=== PATIENT | male | born 1945 | race Caucasian/White ===

== ENCOUNTER 2016-10-15 12:59 | Day surgery (SDC) | payer MEDICARE, BC | END 2016-10-15 13:32 | disposition home or self-care (01) | LOC: HOP 12:59 | PROVIDERS: ATTEND Internal Medicine Gastroenterology | DX: Z86.010 Personal history of colon polyps (principal); Z53.9 Procedure and treatment not carried out, unspecified reason ==

== ENCOUNTER 2016-11-05 12:38 | Day surgery (SDC) | payer MEDICARE, BC ==
[2016-11-05] MEDS ORDERED: LIDOCAINE 2% MDV (20MG/ML) 20ML VIAL IV ONE (14:00)
[2016-11-05] MEDS ORDERED: PROPOFOL 10 MG/ML VIAL IV ONE (14:00)
--- NOTE | 2016-11-07 12:10 | Operative Note ---
DATE OF SURGERY: 11/05/2016 OPERATION: Incomplete COLONOSCOPY. INDICATION: History of colon polyps in the past. The patient returns at this time for surveillance. ANESTHESIA: Intravenous sedation was administered by the department of anesthesiology and included Diprivan titrated to effect. PROCEDURE: Following informed consent from this alert individual including a discussion of the risks and benefits of the procedure and an opportunity for the patient to ask questions, the patient was in the left lateral decubitus position. A digital rectal examination was performed. No abnormalities were noted. Following this, the Olympus [id number] video colonoscope was inserted into the rectum without resistance. The rectal mucosa had a normal appearance with normal folds and distensibility. There was some retained stool noted. The colonoscope was advanced up through the left colon into the transverse colon but unfortunately there was a marked amount of retained liquid and semi-solid and solid stool noted. This precluded adequate visualization of the mucosa. From this point, the colonoscope was withdrawn. Again, there was a copious amount of liquid, semi-solid, and some solid stool noted precluding a good evaluation of the mucosa throughout. The colonoscope was removed. The patient tolerated the procedure well and was returned to the recovery area in stable condition. IMPRESSION: 1. Incomplete colonoscopy due to poor colon preparation. 2. Solitary diverticulum noted. RECOMMENDATIONS: I will discuss the issue of adequate preparation with the patient and will most likely reschedule examination. Apparently, he claims this was a 3-day colon prep. Followup will also be with Dr. Segundo. As always, thank you for allowing me to participate in the care of your patient. Jesse Savage, CC: FEDERICO SEGUNDO MD, [facility]
== END 2016-11-05 14:15 | disposition home or self-care (01) ==
LOC: HOP 12:38
PROVIDERS: ATTEND Internal Medicine Gastroenterology
DX: Z12.11 Encounter for screening for malignant neoplasm of colon (principal); I10 Essential (primary) hypertension; M79.7 Fibromyalgia
CPT/HCPCS: 00810; G0121

== ENCOUNTER 2016-12-15 08:46 | Emergency (ER) | payer MEDICARE, BC ==
--- NOTE | 2016-12-15 09:01 | Emergency Department Record ---
History of Present Illness - General Chief complaint: ENT Stated complaint: SINUS SAHU,10 DAYS Time Seen by Provider: 12/15/16 08:54 Source: Patient - History of Present Illness Initial comments: The patient states that he has had face pressure from his sinuses for the past 10 days, especially over his upper teeth and cheeks. He denies f,c,stiff neck, rashes, cp, sam, ap. He feels like he has post nasal dripping down his throat but is unsure of the color of drainage. He has had sinus infections in the past but not recently. He sees Dr. Segundo for his PCP. - Related Data Home Medications Medication Instructions Recorded Confirmed Last Taken Atenolol 50 mg PO DAILY 12/15/16 12/15/16 12/14/16 Duloxetine HCl [Cymbalta] 60 mg PO BID 12/15/16 12/15/16 12/14/16 Fentanyl [Duragesic] 75 mcg TD Q72H 12/15/16 12/15/16 12/13/16 Pregabalin [Lyrica] 150 mg PO BID 12/15/16 12/15/16 12/14/16 Tramadol HCl [Ultram] 50 mg PO BID PRN 12/15/16 12/15/16 12/15/16 Trazodone HCl 50 mg PO QHS 12/15/16 12/15/16 12/14/16 Previous Rx's Medication Instructions Recorded Azithromycin [Zithromax] 500 mg PO DAILY #7 tab 12/15/16 Allergies Allergy/AdvReac Type Severity Reaction Status Date / Time No Known Drug Allergies Allergy Verified 12/15/16 08:57 Review of Systems Reviewed: No additional complaints except as noted below Constitutional: Reports: As per HPI. Denies: Chills, Fever, Malaise, Night sweats, Weakness, Weight change Eyes: Reports: As per HPI. Denies: Eye discharge, Eye pain, Photophobia, Vision change ENT: Reports: As per HPI. Denies: Congestion, Dental pain, Ear pain, Epistaxis , Hearing loss, Throat pain Respiratory: Reports: As per HPI. Denies: Cough, Dyspnea, Hemoptysis, Stridor, Wheezes Cardiovascular: Reports: As per HPI. Denies: Arrhythmia, Chest pain, Dyspnea on exertion, Edema, Murmurs, Orthopnea, Palpitations, Paroxysmal nocturnal dyspnea, Rheumatic Fever, Syncope Endocrine: Reports: As per HPI. Denies: Fatigue, Heat or cold intolerance, Polydipsia, Polyuria Gastrointestinal: Reports: As per HPI. Denies: Abdominal pain, Constipation, Diarrhea, Hematemesis, Hematochezia, Melena, Nausea, Vomiting Genitourinary: Reports: As per HPI. Denies: Dysuria, Frequency, Hematuria, Incontinence, Retention, Testicular pain, Testicular mass, Urgency Musculoskeletal: Reports: As per HPI. Denies: Arthralgia, Back pain, Gout, Joint swelling, Myalgia, Neck pain Skin: Reports: As per HPI. Denies: Bruising, Change in color, Change in hair/ nails, Lesions, Pruritus, Rash Neurological: Reports: As per HPI. Denies: Abnormal gait, Confusion, Headache, Numbness, Paresthesias, Seizure, Tingling, Tremors, Vertigo, Weakness Psychiatric: Reports: As per HPI. Denies: Anxiety, Auditory hallucinations, Depression, Homicidal thoughts, Suicidal thoughts, Visual hallucinations Hematological/Lymphatic: Reports: As per HPI. Denies: Anemia, Blood Clots, Easy bleeding, Easy bruising, Swollen glands Past Medical History - SOCIAL HISTORY Smoking Status: Never smoker - RESPIRATORY Hx Respiratory Disorders: Yes Hx Sleep Apnea: Yes Hx of CPAP: Yes - CARDIOVASCULAR Hx Cardio Disorders: Yes Hx Hypertension: Yes - NEURO Hx Neuro Disorders: Yes Hx Headaches: Yes - GI Hx GI Disorders: Yes Hx Diverticulitis: Yes Hx of Polyps: Yes Comment:: CONSTIPATION - Hx Genitourinary Disorders: Yes Hx Prostate Problems: Yes - ENDOCRINE Hx Endocrine Disorders: No - MUSCULOSKELETAL Hx Musculoskeletal Disorders: Yes Hx Arthritis: Yes Hx Fibromyalgia: Yes Hx Osteoporosis: Yes - PSYCH Hx Psych Problems: Yes Hx Anxiety: Yes Hx Depression: Yes - HEMATOLOGY/ONCOLOGY Hx Hematology/Oncology Disorders: No Physical Exam - General General Appearance: Alert, Oriented x3, Cooperative, No acute distress - Head Head exam: Normal inspection Image of Face/Head: 1 - facial pressure - Eye Eye exam: Normal appearance, PERRL Pupils: Normal accommodation - ENT ENT exam: Normal exam, Mucous membranes moist, Normal external ear exam, Normal orophraynx, TM's normal bilaterally Ear exam: Normal external inspection. negative: External canal tenderness Nasal Exam: Normal inspection. negative: Discharge, Sinus tenderness Mouth exam: Normal external inspection, Tongue normal Teeth exam: Normal inspection. negative: Dental caries Throat exam: Normal inspection. negative: Tonsillar erythema, Tonsillar exudate - Neck Neck exam: Normal inspection, Full ROM. negative: Tenderness - Respiratory Respiratory exam: Normal lung sounds bilaterally. negative: Respiratory distress - Cardiovascular Cardiovascular Exam: Regular rate, Normal rhythm, Normal heart sounds - GI/Abdominal GI/Abdominal exam: Soft, Normal bowel sounds. negative: Tenderness - Rectal Rectal exam: Deferred - exam: Deferred - Extremities Extremities exam: Normal inspection, Full ROM, Normal capillary refill. negative: Tenderness - Back Back exam: Reports: Normal inspection, Full ROM. Denies: CVA tenderness (R), CVA tenderness (L), Muscle spasm, Rash noted, Tenderness - Neurological Neurological exam: Alert, CN II-XII intact, Normal gait, Oriented X3, Reflexes normal. negative: Motor sensory deficit - Psychiatric Psychiatric exam: Normal affect, Normal mood - Skin Skin exam: Dry, Intact, Normal color, Warm Medical Decision Making - Management Options MDM Management: No Additional Work-up Planned Disposition Disposition: Discharge Clinical Impression: Sinusitis Qualifiers: Sinusitis location: maxillary Chronicity: acute Recurrence: not specified as recurrent Qualified Code(s): J01.00 - Acute maxillary sinusitis, unspecified Disposition: Home, Self-Care Condition: (1) Good Instructions: Sinusitis (ED) Additional Instructions: Take antibiotics until gone. Tylenol as directed as needed for pain, fevers. Follow up with PCP as needed. Prescriptions: Azithromycin [Zithromax] 500 mg PO DAILY #7 tab Quality - Quality Measures Quality Measures: Adult Sinusitis - Adult Sinusitis: CT Use Quality Measure: Measure #333: Adult Sinusitis Adult Sinusitis: CT for Acute Sinusitis: < CT NOT ordered or received within 28 Days > [G9349] - Blood Pressure Screening Blood Pressure Classification: Pre-Hypertensive BP Reading Systolic Measurement: 136 Diastolic Measurement: 89 Screening for High Blood Pressure: < Normal BP, F/U Not Required > [G8783] Normal BP Follow-up Interventions: No follow-up required
== END 2016-12-15 09:12 | disposition home or self-care (01) ==
LOC: ER 08:46
DX: J01.00 Acute maxillary sinusitis, unspecified (principal)
CPT/HCPCS: 99282

== ENCOUNTER 2017-02-11 08:40 | Day surgery (SDC) | payer MEDICARE, BC ==
[2017-02-11] MEDS ORDERED: MIDAZOLAM HCL 2MG/2ML VIAL IV ONE (14:00)
[2017-02-11] MEDS ORDERED: LIDOCAINE 2% MDV (20MG/ML) 20ML VIAL IV ONE (14:00)
[2017-02-11] MEDS ORDERED: PROPOFOL 10 MG/ML VIAL IV ONE (14:00)
--- NOTE | 2017-02-13 11:50 | Operative Note ---
DATE OF SURGERY: 02/11/2017 OPERATION: COLONOSCOPY to the cecum. INDICATION: History of polyps in the past. The patient returns at this time for surveillance. He has had a difficult time prepping and, in fact, this is his at least second attempt at performing a colonoscopy this year with incomplete examinations in the past due to poor prep. ANESTHESIA: Intravenous sedation was administered by the department of anesthesiology and included Diprivan titrated to effect. PROCEDURE: Following informed consent from this alert individual including a discussion of the risks and benefits of the procedure and an opportunity for the patient to ask questions, the patient was in the left lateral decubitus position. A digital rectal examination was performed. No abnormalities were noted. Following this, the Olympus [id number] video colonoscope was inserted into the rectum without resistance. The rectal mucosa had a normal appearance with normal folds and distensibility. The colonoscope was advanced up through the colon to the level of the cecum with some difficulty due to some retained stool, particularly in the right colon, and some redundance of the colon. With abdominal pressure support, ultimately the cecum was reached. The appendiceal orifice was noted. Unfortunately, there was some retained solid and semi-solid stool noted in the cecum. Washing and suctioning was employed vigorously and as best visualized, there were no mucosal changes appreciated. From the cecum, the colonoscope was then withdrawn. Diverticulosis was apparent in the left colon. No large polyps were seen but again, the preparation was fair with some retained liquid and semi-solid stool noted. The colonoscope was then drawn back into the rectum. Retroflexion accomplished following air insufflation failed to demonstrate any mucosal changes. The instrument was straightened and removed. The patient tolerated the procedure well and was returned to the recovery area in stable condition. IMPRESSION: 1. Sigmoid diverticulosis. 2. Fair preparation. RECOMMENDATIONS: The patient was advised to have recheck colonoscopy in 3 years' time due to the fair preparation noted today. He will otherwise follow up with Dr. Segundo. As always, thank you for allowing me to participate in the care of your patient. CC: FEDERICO SEGUNDO MD, FACP [facility]
== END 2017-02-11 10:35 | disposition home or self-care (01) ==
LOC: HOP 08:40
PROVIDERS: ATTEND Internal Medicine Gastroenterology
DX: Z12.11 Encounter for screening for malignant neoplasm of colon (principal); Z86.010 Personal history of colon polyps; K57.30 Diverticulosis of large intestine without perforation or abscess without bleeding; I10 Essential (primary) hypertension
CPT/HCPCS: 00810; G0105

== ENCOUNTER → 2017-05-30 | Day surgery (SDC) | payer MEDICARE, BC ==
[~2017-05-30] MED LIST: EPINEPHRINE 1 MG/ML AMPUL SQ ONE; LIDOCAINE 2% MDV (20MG/ML) 20ML VIAL IV ONE; NEOMYCIN/POLY./DEXAM OPTH OINT OPTH ONE; PROPOFOL 10 MG/ML VIAL IV ONE; TETRACAINE HCL 0.5% 15 ML OPTH BTL OPTH ONE
--- NOTE | 2017-05-30 16:16 | OP NOTE CHAMES ---
DATE OF PROCEDURE: 05/30/17 PREOPERATIVE DIAGNOSIS: Nuclear sclerotic and cortical cataract, right eye. POSTOPERATIVE DIAGNOSIS: Nuclear sclerotic and cortical cataract, right eye. OPERATION: Phacoemulsification of cataractous lens with implantation of intraocular lens. LENS IMPLANT USED: [employer]dhury Model PCB00 + 16.5 diopters. COMPLICATIONS: None. PROCEDURE IN DETAIL: Following a retrobulbar and facial block, the patient was prepped and draped in the usual fashion for eye surgery. A lid speculum was placed in the right eye after which a 2.4 mm tunnel wound was placed at the temporal limbus and dissected into clear cornea. A paracentesis was placed at 2 oclock hours to the left and right of the initial incision and the chamber deepened with Viscoelastic. The keratome was then used to enter the anterior chamber after which the continuous circular capsulorrhexis was accomplished without difficulty using a bent needle and a Utrata forceps. Hydrodissection and hydrodelineation of the lens was performed after which the nucleus of the lens was removed using the Phaco handpiece in the [id number] technique. The residual cortical material was irrigated and aspirated from the eye after which the bag and chamber were re-examined. The bag was re-inflated with Viscoelastic and the intraocular lens injected into the capsular bag where it centered well. The Viscoelastic was then copiously irrigated and aspirated from the eye after which the temporal tunnel wound and paracentesis were hydrated and the wounds were examined. They were noted to be watertight. The lid speculum was removed from the eye and the eye patched and shielded. The patient was transferred to the recovery room in satisfactory condition and given an appointment to be reexamined in the clinic later today or as directed by Dr. Herny. JOB NUMBER: [id number] [facility]
== END | disposition home or self-care (01) ==
LOC: SUR 07:00
PROVIDERS: ATTEND Ophthalmology
DX: H25.11 Age-related nuclear cataract, right eye (principal)
CPT/HCPCS: J0171